=== PATIENT | male | born 1965 | race Asian ===

== ENCOUNTER 2016-09-18 21:45 | Emergency (ER) | payer BC ==
[~2016-09-18] VITALS: Ht 177.8 cm; Wt 81.6 kg
[2016-09-19 00:06] VITALS: BP 163/91
== END 2016-09-19 00:06 | disposition home or self-care (01) ==
LOC: ED 21:45
DX: S50.311A Abrasion of right elbow, initial encounter (principal); S50.312A Abrasion of left elbow, initial encounter; V18.4XXA Pedal cycle driver injured in noncollision transport accident in traffic accident, initial encounter; Y93.89 Activity, other specified; Y92.488 Other paved roadways as the place of occurrence of the external cause; Y99.8 Other external cause status
CPT/HCPCS: 82962; 90715